=== PATIENT | female | born 1980 | race Caucasian/White ===

== ENCOUNTER 2023-04-29 14:33 | Emergency (ER) | payer OTHER, SELFPAY ==
--- NOTE | 2023-04-29 15:10 | ER ---
Nurse's Notes [facility] Name: Dinh Mckee Age: 43 yrs Sex: Female : 1980 Arrival Date: 04/29/2023 Time: 14:[address] MD: Diagnosis: ED Course: 04/29 14:36 Patient arrived in ED. 5 14:42 Yanet Winslow FNP [facility] 14:42 Jasen Chapa MD is Attending Physician. [facility] 14:51 Patient's name was called from ER lobby. No response. iw 14:57 Patient's name was called from ER lobby. No response. cm10 Administered Medications: No medications were administered Outcome: 15:09 Patient left the ED. cm10 Signatures: Renee Pizano, RN RN Yanet Winslow FNP FNP Valery Stephen RN RN Theresa Steward 5
== END 2023-04-29 15:09 | disposition left against medical advice (07) ==
LOC: ER 14:33
DX: Z02.9 Encounter for administrative examinations, unspecified (principal)

== ENCOUNTER 2024-06-22 08:59 | Observation (INO) | payer OTHER, SELFPAY ==
[2024-06-22] MEDS: CEFOXITIN 1 GM in NA CHLORIDE 0.9% 50 ML IVPB SCH (11:18)
[2024-06-22] MEDS: Ringers Lactate 1,000 ML IV SCH (11:18)
[2024-06-22 11:39] VITALS: BMI 16.5
[2024-06-22] MEDS ORDERED: FENTANYL CITR 100 MCG/2 ML ONE (12:45)
[2024-06-22] MEDS ORDERED: ROCURONIUM 50 MG/5 ML VIAL IV ONE (12:45)
[2024-06-22] MEDS ORDERED: LIDOCAINE 2% MPF 5 ML VIAL ONE (12:45)
[2024-06-22] MEDS ORDERED: MIDAZOLAM HCL 2 MG/2 ML INJ ONE (12:45)
[2024-06-22] MEDS ORDERED: ONDANSETRON 4 MG/2 ML VIAL ONE (12:45)
[2024-06-22] MEDS ORDERED: propofoL 200 MG/20 ML VIAL IV ONE (12:45)
--- NOTE | 2024-06-22 13:00 | P.HP ---
Date of Service: 06/22/24 PC: This patient presented to another facility with severe right upper quadrant abdominal pain for diagnosis and treatment. She was worked up at the other facility, where a diagnosis was made of acute on chronic cholecystitis with cholelithiasis. She was transferred to our facility as they do not have surgical capabilities at that hospital. HPC: Has had prior episodes of this PSHx: NAD Social Hx: No known allergies Sys R: No cough, wheeze, shortness of breath. No chest pain or palpitations. No urinary complaints O/E: Awake alert vital signs are stable HEENT: Negative Chest: Air entry equal bilateral Abd: Right upper quadrant abdominal pain [place]: Intact Data: Has documented cholecystitis with cholelithiasis Impression: Acute on chronic cholecystitis with cholelithiasis Plan: I will taken the operating room for laparoscopic cholecystectomy with intraoperative cholangiogram. The risks of this procedure have been discussed. Possibility of bleeding, infection, injury to bile ducts blood vessels and intestines has been described. Possible need for an open and/or further surgeries and procedures was discussed. She understands and wants us to proceed.
[2024-06-22] MEDS ORDERED: dexAMETHasone 10 MG/ML VIAL ONE (14:44)
[2024-06-22] MEDS ORDERED: KETOROLAC 30 MG/ML INJ ONE (14:44)
[2024-06-22] MEDS ORDERED: NEOSTIGMINE 1 MG/ML -10 ML VIAL ONE (15:20)
[2024-06-22] MEDS ORDERED: GLYCOPYRROLATE 0.2 MG/ML SYR ONE (15:20)
[2024-06-22] MEDS: MEPERIDINE HCL 25 MG/ML SYR ONE (15:43)
--- NOTE | 2024-06-22 15:43 | P.OP ---
Preoperative diagnosis: Acute on chronic cholecystitis with cholelithiasis Postoperative diagnosis: The same Primary procedure: Laparoscopic cholecystectomy Secondary procedure: Cholangiogram Anesthesia: General Estimated blood loss: Less than 10 cc Specimen: 1 gallbladder and common Operative Technique: Patient brought the operating room placed supine on the table. After the induc tion of adequate general endotracheal anesthesia, the area of the abdomen was prepped with a DuraPrep solution, and she was draped in usual aseptic manner. Attention was turned towards the umbilicus. A skin incision was made. The Visiport was now used to very carefully enter the peritoneal cavity. This patient is quite petite and there was limited space between the umbilicus and the inferior border of the liver. Another 5 mm trocar was placed approximately 3 fingers above the umbilicus in the midline. This is where we placed our 5 mm midline trocar. Another 5 mm trocar was placed on the right lateral side. We were now able to visualize the peritoneal cavity with the patient placed in reverse Trendelenburg and airplane to the left. The gallbladder was identified. It was markedly distended. We could see edema throughout the jarvis of the gallbladder itself. We were able to dissect the tract down to to the Sanderson's pouch. Fortunately able apply lateral traction and expose both the cystic duct and artery. The cystic artery was isolated first. It was clipped and divided. We now were left with the cystic duct. The cystic duct was milked up towards the gallbladder and a clip was placed between the gallbladder and the cystic duct. An opening was made into the cystic duct through which we obtained a normal intraoperative cholangiogram. We were also able to pass the ch olangiocatheter down into the duodenum, with no obstruction. The catheter was now removed. Clips were placed on the distal portion of the cystic duct which was now fully transected. The gallbladder then was dissected free from the liver bed, placed into an Endo Catch, and brought out through the umbilical trocar site at this point the abdomen was inspected to ensure adequate hemostasis. Irrigating fluid was aspirated from the peritoneal cavity. The umbilical trocar site was approximated using the Endo Close and an absorbable suture. The pneumoperitoneum was collapsed, the trocars removed, and pina applied to the skin. At the end of the procedure she was stable and sent to the recovery room. Needle sponge instrument count were correct. No drains were placed. Complications: None Transferred to: Recovery Room Condition: Good
[2024-06-22] MEDS: HYDROMORPHONE HCL 1 MG/ML INJ ONE (15:48)
[2024-06-22 15:53] VITALS: O2SAT 100
[2024-06-22] MEDS: FLU (Fluarix Triv) TS24-25(6MOS UP)/PF 45 MCG/0.5 ML Syringe IM ONE (16:00)
--- NOTE | 2024-06-22 18:48 | RAD REPORT ---
EXAM: Fluoroscopy use, Cholangiogram Oper-Xray Or HISTORY: HS MAIN LAP EMORY W/ IOC COMPARISON: None FINDINGS: A total of 1 image was sent to PACS, during a fluoroscopically guided intraoperative cholan giography. No radiologist was involved in protocoling or performance of the study, and no radiologist was present for the duration of the procedure. No interpretation of the saved images will be provided. Total fluoroscopy time: 0.1 minutes. IMPRESSION: Documentation of fluoroscopy use as above.
[2024-06-22] MEDS: PROMETHAZINE INJ 25 MG/ML AMP IV PRN (20:31)
[2024-06-22] MEDS: MORPHINE 2 MG/ML SYR IV PRN (20:32)
[2024-06-22] MEDS: KETOROLAC 30 MG/ML INJ IV PRN (23:51)
[2024-06-23] MEDS ORDERED: ONDANSETRON 4 MG/2 ML VIAL IV PRN (07:13)
[2024-06-23 13:04] VITALS: BP 157/84; TEMP 98.4
== END 2024-06-23 13:14 | disposition home or self-care (01) ==
LOC: 2ND 08:59
PROVIDERS: ADMIT Surgery; ATTEND Surgery
PROC: BF502Z0 Other Imaging of Bile Ducts using Fluorescing Agent, Intraoperative (ICD-10-PCS; 2024-06-22)
PROC: 0FT44ZZ Resection of Gallbladder, Percutaneous Endoscopic Approach (ICD-10-PCS; principal; 2024-06-22 14:19)
DX: K80.10 Calculus of gallbladder with chronic cholecystitis without obstruction (principal)
CPT/HCPCS: 88304; 74300; 47600; J2550; J2704; J2710; J2003; J2250; J3010; J1100; J2270; J2175; J1171; J0694 ×5; J2405; J7120 ×2; G0378; G0379

== ENCOUNTER 2024-07-03 10:21 | Emergency (ER) | payer OTHER ==
--- NOTE | 2024-07-03 10:40 | ER ---
Nurse's Notes [facility] Name: Dinh Mckee Age: 44 yrs Sex: Female : 1980 Arrival Date: 07/03/2024 Time: 10:21 Bed IW1 Private MD: Diagnosis: Post-Operative Wound Evaluation Presentation: 07/03 10:20 Chief complaint: Patient states: "I had an abdominal surgery at this facility on this rs5 month on 06/23/24 and I just want my pina removed". 10:20 Coronavirus screen: At this time, the client does not indicate any symptoms associated rs5 with coronavirus-19. Ebola Screen: No symptoms or risks identified at this time. Initial Sepsis Screen: Does the patient meet any 2 criteria? No. Patient's initial sepsis screen is negative. Does the patient have a suspected source of infection? No. Patient's initial sepsis screen is negative. Risk Assessment: Do you want to hurt yourself or someone else? Patient reports no desire to harm self or others. Onset of symptoms was July 03, 2024. 10:20 Method Of Arrival: Ambulatory rs5 10:20 Acuity: SILVIO 5 rs5 Triage Assessment: 10:40 General: Appears in no apparent distress. comfortable, Behavior is calm, cooperative. rs5 Historical: - Allergies: 10:37 No Known Allergies; rs5 - PMHx: 10:37 None; rs5 - PSHx: 10:37 ''abdominal surgery"; gallbladder removal; rs5 - Immunization history:: Adult Immunizations up to date. - Infectious Disease History:: Denies. - Social history:: Smoking status: Patient denies any tobacco usage or history of. Screenin:41 [facility] ED Fall Risk Assessment (Adult) History of falling in the last 3 months, rs5 including since admission No falls in past 3 months (0 pts) Confusion or Disorientation No (0 pts) Intoxicated or Sedated No (0 pts) Impaired Gait No (0 pts) Mobility Assist Device Used No (0 pt) Altered Elimination No (0 pt) Score/Fall Risk Level 0 - 2 = Low Risk Oriented to surroundings, Maintained a safe environment. Abuse screen: Denies threats or abuse. Nutritional screening: No deficits noted. Tuberculosis screening: No symptoms or risk factors identified. Assessment: 10:40 General: Appears in no apparent distress. comfortable, Behavior is calm, cooperative. rs5 Pain: Denies pain. Neuro: Level of Consciousness is awake, alert, obeys commands, Oriented to person, place, time, situation. Cardiovascular: Patient's skin is warm and dry. Respiratory: Airway is patent Respiratory effort is even, unlabored, Respiratory pattern is regular, symmetrical. GI: Abdomen is round non-distended, several small pina noted to abdomen, no signs of infection or redness noted Abd is soft and non tender X 4 quads. : No signs and/or symptoms were reported regarding the genitourinary system. EENT: No signs and/or symptoms were reported regarding the EENT system. Derm: Skin is intact, Skin is pink, warm \\T\\ dry. Musculoskeletal: Range of motion: intact in all extremities. Vital Signs: 10:20 BP 130 / 85; Pulse 74; Resp 17; Temp 98(O); Pulse Ox 99% ; rs5 10:44 BP 128 / 81; Pulse 77; Resp 17; Pulse Ox 99% on R/A; rs5 ED Course: 10:23 Patient arrived in ED. mr 10:24 Jasen Chapa MD is Attending Physician. ec2 10:37 Triage completed. rs5 10:41 Patient has correct armband on for positive identification. Adult w/ patient. rs5 10:41 No provider procedures requiring assistance completed. rs5 10:44 Arm band placed on right wrist. rs5 10:44 Provided Education on: discharge instructions . rs5 10:44 Patient did not have IV access during this emergency room visit. rs5 10:45 Gonsalo Moreira RN is Primary Nurse. rs5 Administered Medications: No medications were administered Medication: 10:40 VIS not applicable for this client. rs5 Outcome: 10:39 Discharge ordered by . ec2 10:44 Discharged to home ambulatory, with family, rs5 10:44 Condition: stable 10:44 Discharge instructions given to patient, family, Instructed on discharge instructions, follow up and referral plans. Demonstrated understanding of instructions, follow-up care, 10:45 Patient left the ED. rs5 Signatures: Pati Barker, Reg Reg mr Gonsalo Moreira, POORNIMA RN rs5 Jasen Chapa MD MD ec2 Corrections: (The following items were deleted from the chart) 13:11 10:37 PSHx: ''abdominal surgery"; rs5 rs5 13:13 10:48 BP 128 / 81; Pulse 77bpm; Resp 17bpm; Pulse Ox 99% RA; rs5 rs5
--- NOTE | 2024-07-03 10:40 | EDPHYS ---
Physician Documentation [facility] Name: Dinh Mckee Age: 44 yrs Sex: Female : 1980 Arrival Date: 07/03/2024 Time: 10:21 Bed IW1 Private MD: ED Physician Jasen Chapa HPI: 07/03 10:40 This 44 yrs old Female presents to ER via Ambulatory with complaints of Wound ec2 Check. 10:40 Patient with recent cholecystectomy arrives today to evaluate her wounds. Patient ec2 reports that she has pina in place and is irritated. Patient reports otherwise no drainage or fevers or chills. Denies other concerns.. Historical: - Allergies: 10:37 No Known Allergies; rs5 - PMHx: 10:37 None; rs5 - PSHx: 10:37 ''abdominal surgery"; gallbladder removal; rs5 - Immunization history:: Adult Immunizations up to date. - Infectious Disease History:: Denies. - Social history:: Smoking status: Patient denies any tobacco usage or history of. ROS: 10:40 Constitutional: as per hpi ec2 Exam: 10:40 Constitutional: GEN: NAD Head: atraumatic Eyes: EOMI Ears: External ears are ec2 normal. CV: regular rate LUNGS: no respiratory distress ABD: non-distended SKIN: Multiple well-healing wounds noted to the abdomen without significant erythema or warmth or discharge appreciated. MSK: no evidence of trauma Vital Signs: 10:20 BP 130 / 85; Pulse 74; Resp 17; Temp 98(O); Pulse Ox 99% ; rs5 10:44 BP 128 / 81; Pulse 77; Resp 17; Pulse Ox 99% on R/A; rs5 MDM: 10:39 Medical Screening Exam initiated ec2 10:40 Data reviewed: vital signs, nurses notes. ED course: Patient arrives today for ec2 evaluation of a wound. Examination yields well-healing wound. Instructed her she needs a follow-up with Dr. Scott who performed surgery to have the pina removed. Return precautions given. Differential diagnosis considered included postoperative complications, wound dehiscence, cellulitis.. Administered Medications: No medications were administered Disposition Summary: 07/03/24 10:39 Discharge Ordered Notes: Location: Home ec2 Condition: Stable ec2 Diagnosis - Post-Operative Wound Evaluation ec2 Followup: ec2 - With: Private Physician - When: - Reason: Re-evaluation by your physician Discharge Instructions: - Discharge Summary Sheet ec2 - Wound Care, Adult ec2 Forms: - Medication Reconciliation Form ec2 - Antibiotic Education ec2 - Prescription Opioid Use ec2 - Patient Portal Instructions ec2 - Leadership Thank You Letter ec2 Signatures: Gonsalo Moreira RN RN rs5 Jasen Chapa MD MD ec2 Corrections: (The following items were deleted from the chart) 13:11 10:37 PSHx: ''abdominal surgery"; rs5 rs5
== END 2024-07-03 10:45 | disposition home or self-care (01) ==
LOC: ER 10:21
DX: Z48.01 Encounter for change or removal of surgical wound dressing (principal); Z90.49 Acquired absence of other specified parts of digestive tract
CPT/HCPCS: 99282